=== PATIENT | female | born 1985 | race Caucasian/White ===

== ENCOUNTER 2022-10-30 11:19 | Outpatient (AMB) | payer MEDICAID, SELFPAY ==
[2022-10-30 11:46] VITALS: BP 100/64; PULSE 81; O2SAT 97; BMI 40.1
--- NOTE | 2022-10-30 11:46 | MHC.PC.OV ---
Vital Signs 10/30/22 11:46 Height 5 ft 1 in Weight 212 lb BMI 40.1 BP 100/64 Blood Pressure Location Rt brachial Position Sitting Pulse 81 Pulse Source Pulse Oximeter Pulse Oximetry (%) 97 Oxygen Delivery Method Room Air Intake Visit Reasons: Annual PE/Est. Care Intake Note: Pt is here today for New patient visit PE. Allergies No Known Allergies Allergy (Verified 10/30/22 11:48) Medication List - Last Reconciled 10/30/22 by Antonieta Garcia MD No Known Home Meds Tobacco use date assessed: 10/30/22 Dental Screening Dental Screen Date: 10/30/22 Did you have a dental visit in the last 12 months?: No Did you have a dental problem in the last 6 months where you did not have access to dental care?: Yes Was dental information given to patient?: Yes HPI Annual PE/Est. 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 Patient complains of chronic bilateral hand pain and tingling sensation worse at night on and off for the last few months. 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 Patient also complains of chronic LBP right more than left positional, worse when sitting for long time or standing for 2 years on and off. She denies weakness or numbness in extremities. Pt c/o worsening of chronic anxiety and panic attacks. Patient started seeing a counselor. She is not interested in taking medications. 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 Housing: House Patient Tobacco Use Status: Former Tobacco user (6 years ago) e-Cigarette/Vaping Use: Currently Using service: No Current occupational status: employed Cognitive needs: No Hearing needs: No Vision needs: No Review of Systems Const All systems reviewed & are unremarkable except as noted in HPI and below Reports no additional complaints Eyes Reports no additional complaints ENT Reports no additional complaints Card Reports no additional complaints Resp Reports no additional complaints GI Reports no additional complaints Reports no additional complaints Musc Reports no additional complaints Physical exam (Primary Care) Vital Signs: Last Vital Signs Pulse 81 10/30/22 11:46 BP 100/64 10/30/22 11:46 Pulse Ox 97 10/30/22 11:46 Oxygen Delivery Method Room Air 10/30/22 11:46 BMI result Body Mass Index 40.1 Tobacco/Smoking Status: Tobacco use Status Tobacco use date assessed 10/30/22 10/30/22 11:54 Patient Tobacco Use Status Former Tobacco user (6 years 10/30/22 12:02 ago) e-Cigarette/Vaping Use Currently Using 10/30/22 12:02 Const General: no acute distress HENMT Head: Yes normal to inspection Ears: hearing grossly normal bilaterally General nose exam: Normal external nose present Face and sinus: Yes normal facial exam Mouth: Normal oral and palatal mucosa present Teeth and gingiva: dentition normal Throat: Yes posterior oropharynx normal Eyes General: appearance normal, both eyes and all related structures Neck Neck: Yes no lymphadenopathy and Yes supple Resp Effort & Inspection: normal respiratory effort Auscultation: clear to auscultation bilaterally Cardio Rhythm: regular rhythm Heart sounds: S1 normal heart sound present and S2 normal heart sound present GI Inspection: Yes normal to inspection Palpation (GI): Soft to palpation Percussion: Yes normal to percussion Auscultation: normal bowel sounds Assessment and Plan Assessment & Plan (1) Annual physical exam: Code(s): Z00.00 - Encounter for general adult medical examination without abnormal findings Plan: Well-balanced diet regular exercise discussed with the patient. She will return for fasting blood work (2) Anxiety: Code(s): F41.9 - Anxiety disorder, unspecified Plan: Patient will continue to follow-up with a counselor (3) Arthralgia: Code(s): M25.50 - Pain in unspecified joint Plan: Check arthritis panel and for bilateral carpal tunnel try wrist splints. 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 Panel Fast Today F41.9 - Anxiety disorder, unspecified, Z00.00 - Encounter for general adult medical examination without abnormal findings Lipid Panel Today F41.9 - Anxiety disorder, unspecified, Z00.00 - Encounter for general adult medical examination without abnormal findings TSH reflex Free T4 Today F41.9 - Anxiety disorder, unspecified, Z00.00 - Encounter for general adult medical examination without abnormal findings Vitamin D 25-OH Total Today F41.9 - Anxiety disorder, unspecified, Z00.00 - Encounter for general adult medical examination without abnormal findings Complete Blood Count no Diff Today F41.9 - Anxiety disorder, unspecified, Z00.00 - Encounter for general adult medical examination without abnormal findings XR lumbar spine 2-3V Today M54.50 - Low back pain, unspecified Cyclic Citrullinated Peptide Today M25.50 - Pain in unspecified joint, Z00.00 - Encounter for general adult medical examination without abnormal findings Rheumatoid Factor Today M25.50 - Pain in unspecified joint, Z00.00 - Encounter for general adult medical examination without abnormal findings Erythrocyte Sedimentation Rate Today M25.50 - Pain in unspecified joint, Z00.00 - Encounter for general adult medical examination without abnormal findings PT Evaluation and Treatment Today M54.50 - Low back pain, unspecified, Z00.00 - Encounter for general adult medical examination without abnormal findings Coding Level of Care Code New Pt Prev Care 18-39yr([id number] Diagnoses Annual physical exam Z00.00 Anxiety F41.9 Arthralgia M25.50 Normal pelvic exam Z01.419 Lower back pain M54.50
== END 2022-10-30 12:29 | disposition home or self-care (01) ==
PROVIDERS: Visit Provider Internal Medicine
DX: Z00.00 Encounter for general adult medical examination without abnormal findings (principal); F41.9 Anxiety disorder, unspecified; M25.50 Pain in unspecified joint; M54.50 Low back pain, unspecified
CPT/HCPCS: 99385

== ENCOUNTER 2023-11-09 11:30 | Outpatient (AMB) | payer OTHER, SELFPAY ==
--- NOTE | 2023-11-09 11:30 | MHC.PC.OV ---
Vital Signs 11/09/23 11:32 Height 5 ft 1 in Weight 211 lb BMI 39.9 BP 104/66 Blood Pressure Location Rt brachial Position Sitting Pulse 62 Pulse Source Pulse Oximeter Pulse Oximetry (%) 100 Oxygen Delivery Method Room Air Intake Visit Reasons: PE Intake Note: Pt is here today for a PE. 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 Allergies No Known Allergies Allergy (Verified 11/09/23 11:33) Medication List - Last Reconciled 11/09/23 by Antonieta Garcia MD aripiprazole (Abilify) 5 mg PO DAILY Tobacco use date assessed: 11/09/23 Dental Screening Dental Screen Date: 11/09/23 Did you have a dental visit in the last 12 months?: No Did you have a dental problem in the last 6 months where you did not have access to dental care?: Yes Was dental information given to patient?: Yes HPI PE HPI Details Pt presents for PE. Pt c/o itchy external ear canals on and off. Patient denies discharge or pain change in hearing. 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 1. Little interest or pleasure in doing things: not at all 2. Feeling down, depressed, or hopeless: more than half the days 3. Trouble falling or staying asleep, or sleeping too much: more than half the days 4. Feeling tired or having little energy: more than half the days 5. Poor appetite or overeating: more than half the days 6. Feeling bad about yourself - or that you are a failure or have let yourself or your family down: not at all 7. Trouble concentrating on things, such as reading the newspaper or watching television: not at all 8. Moving or speaking so slowly that other people could have noticed. Or the opposite - being so fidgety or restless that you have been moving around a lot more than usual: more than half the days 9. Thoughts that you would be better off or of hurting yourself in some way: several days Total score: 11 Depression Screening Interpretation: Positive (Patient is established with a therapist and psychiatric prescriber) Depression Screening Follow-up: Existing condition and In treatment Depression Screening Done: Yes Source: Developed by Drs. Canelo Mcelroy, Dorothy Mercer, Ric Mansfield and colleagues, with an educational deric from [employer]. Thrive Questionnaire Date Thrive assessed: 11/09/23 I am a: Patient What is your living situation today?: I have a steady place to live Within the past 12 months, did the food you bought not last and you didn't have the money to get more?: I choose not to answer this question Within the past 12 months, did you worry whether your food would run out before you got money to buy more?: I choose not to answer this question Do you have trouble paying for medicines?: No Do you have trouble getting transportation to medical appointments?: No Do you have trouble paying your heating and electricity bill?: No Do you have trouble taking care of your child, family member or friend?: No Do you have trouble with day-to-day activities such as bathing, preparing meals, shopping, managing finances, etc.?: No Are you currently unemployed and looking for a job?: No Are you interested in more education?: No Please select the resources that you would like help with: Housing/Alf Currently or been in a relationship where the following occur: No concerns reported THRIVE Score: 0 AUDIT C Alcohol Use Questionnaire (AUDIT-C) 1. How often do you have a drink containing alcohol?: Never 3. How often do you have six or more drinks on one occasion?: Never Total Score: 0 MIK-7 AMB Questionnaire MIK-7 Date MIK - 7 assessed: 11/09/23 Feeling nervous, anxious, or on edge: 2 = More than half the days Not being able to stop or control worryin = More than half the days Worrying too much about different things: 2 = More than half the days Trouble relaxin = More than half the days Being so restless that it is hard to sit still: 2 = More than half the days Becoming easily annoyed or irritable: 2 = More than half the days Feeling afraid as if something awful might happen: 0 = Not at all Total MIK-7 score (0-4 normal; 5-9 mild; 10-14 moderate; 15-21 severe): 12 Source: Developed by Drs. Canelo Mcelroy, Dorothy Mercer, Ric Mansfield and colleagues, with an educational deric from [employer]. Review of Systems Const All systems reviewed & are unremarkable except as noted in HPI and below Reports no additional complaints Eyes Reports no additional complaints ENT Reports no additional complaints Card Reports no additional complaints Resp Reports no additional complaints GI Reports no additional complaints Reports no additional complaints Physical exam (Primary Care) Vital Signs: Last Vital Signs Pulse 62 11/09/23 11:32 BP 104/66 11/09/23 11:32 Pulse Ox 100 11/09/23 11:32 Oxygen Delivery Method Room Air 11/09/23 11:32 BMI result Body Mass Index 39.9 Tobacco/Smoking Status: Tobacco use Status Tobacco use date assessed 11/09/23 11/09/23 11:37 Patient Tobacco Use Status Former Tobacco user (6 years 11/09/23 11:37 ago) e-Cigarette/Vaping Use Currently Using 11/09/23 11:32 PHQ-9: PHQ-9 Score PHQ-9: Total score 11 11/09/23 11:37 Depression Screening Interpretation: Positive (Patient is established with a therapist and psychiatric prescriber) Depression Screening Follow-up: Existing condition and In treatment Thrive Assessment: Date of Thrive Assessment Date Thrive assessed 11/09/23 11/09/23 11:37 Currently or been in a relationship where the following occur: No concerns reported Const General: no acute distress HENMT Head: Yes normal to inspection Ears: hearing grossly normal bilaterally, external ears normal and TM's normal bilaterally General nose exam: Normal external nose present Face and sinus: Yes normal facial exam Mouth: Normal oral and palatal mucosa present Throat: Yes posterior oropharynx normal Eyes General: appearance normal, both eyes and all related structures Neck Neck: Yes no lymphadenopathy and Yes supple Resp Effort & Inspection: normal respiratory effort Auscultation: clear to auscultation bilaterally Cardio Rhythm: regular rhythm Heart sounds: S1 normal heart sound present and S2 normal heart sound present GI Inspection: Yes normal to inspection Palpation (GI): Soft to palpation Percussion: Yes normal to percussion Auscultation: normal bowel sounds Assessment and Plan Assessment & Plan (1) Annual physical exam: Code(s): Z00.00 - Encounter for general adult medical examination without abnormal findings Plan: Well-balanced diet regular physical activity discussed with the patient she will return for fasting blood work. She is established with obstetrics gynecology physician (2) Anxiety: Comment: f/u with psychiatrist and therapist Code(s): F41.9 - Anxiety disorder, unspecified Plan: Follow-up with a therapist and a prescriber Orders: Orders Complete Blood Count Auto Diff Today F41.9 - Anxiety disorder, unspecified, Z00.00 - Encounter for general adult medical examination without abnormal findings Comprehensive [place]. Panel Fast Today F41.9 - Anxiety disorder, unspecified, Z00.00 - Encounter for general adult medical examination without abnormal findings UA w Microscopic Today F41.9 - Anxiety disorder, unspecified, Z00.00 - Encounter for general adult medical examination without abnormal findings Lipid Panel Today F41.9 - Anxiety disorder, unspecified, Z00.00 - Encounter for general adult medical examination without abnormal findings TSH reflex Free T4 Today F41.9 - Anxiety disorder, unspecified, Z00.00 - Encounter for general adult medical examination without abnormal findings Medications: New acetic acid 2% 3 drps otic (ears) TID 15 mL 0RF Coding Level of Care Code Est Pt Prev Care 18-39y(52575) Diagnoses Annual physical exam Z00.00 Anxiety F41.9
[2023-11-09 11:32] VITALS: BP 104/66; PULSE 62; O2SAT 100; BMI 39.9
== END 2023-11-09 12:20 | disposition home or self-care (01) ==
PROVIDERS: Visit Provider Internal Medicine
DX: Z00.00 Encounter for general adult medical examination without abnormal findings (principal); F41.9 Anxiety disorder, unspecified
CPT/HCPCS: 99395